=== PATIENT | female | born 1950 | race Caucasian/White ===

== ENCOUNTER → 2017-01-13 | Outpatient (CLI) | payer OTHER ==
--- NOTE | 2017-01-13 11:15 | XR ---
EXAMINATION TYPE: XR KUB DATE OF EXAM: 01/13/2017 CLINICAL HISTORY: Nephrolithiasis. TECHNIQUE: Single supine KUB image of the abdomen is obtained. COMPARISON: None. FINDINGS: Bilateral renal calculi are seen (at least 3 on the right and at least 3 in the left). The largest on the right measures 10 mm and the largest on the left measures 10 mm. Scattered gas is seen in non-distended small bowel loops. Gas and fecal material is seen in non-distended colon. The andrew ng bases are clear and the osseous structures are intact with degenerative changes of the lumbosacral spine. IMPRESSION: 1. Bilateral renal calculi (at least 3 on each side) with the largest on each side both measuring 10 mm. 2. Overall nonobstructive bowel gas pattern.
== END | disposition home or self-care (01) ==
LOC: RADXRMAIN 10:34
PROVIDERS: ATTEND Urology
DX: N20.0 Calculus of kidney (principal)
CPT/HCPCS: 74000

== ENCOUNTER → 2017-01-25 | Outpatient (CLI) | payer OTHER ==
[2017-01-25 09:23] LABS: Anion Gap 11 mmol/L; Blood Urea Nitrogen 14 mg/dL (7-17); Calcium 9.7 mg/dL (8.4-10.2); Carbon Dioxide 26 mmol/L (22-30); Chloride 106 mmol/L (98-107); Glucose 107 mg/dL (74-99); Non-African American GFR(MDRD) >60 (>60 ml/min/1.73 sqM); Potassium 4.7 mmol/L (3.5-5.1); Sodium 143 mmol/L (137-145)
[2017-01-25 09:48] LABS: Basophils # (A) 0.1 k/uL (0-0.2); Basophils % (A) 1 %; CH 28.7; CHCM 33.1; Eosinophils # (A) 0.2 k/uL (0-0.7); Eosinophils % (A) 3 %; HCT 48.1 % (34.0-46.0); HDW 2.54; HGB 15.2 gm/dL (11.4-16.0); Luc # (Auto) 0.14; Luc % (Auto) 2; Lymphocytes # (A) 2.2 k/uL (1.0-4.8); Lymphocytes % (A) 28 %; MCH 27.4 pg (25.0-35.0); MCHC 31.5 g/dL (31.0-37.0); MCV 87.1 fL (80.0-100.0); Mean Platelet Volume 8.1; Monocytes # (A) 0.4 k/uL (0-1.0); Monocytes % (A) 4 %; Neutrophils % (A) 63 %; RBC 5.52 m/uL (3.80-5.40); RDW 14.6 % (11.5-15.5); WBC 7.9 k/uL (3.8-10.6); WBC (Perox) 7.73
== END ==
LOC: LABPAT 08:17
PROVIDERS: ATTEND Physician Assistant
DX: Z01.812 Encounter for preprocedural laboratory examination (principal); N20.0 Calculus of kidney; E03.9 Hypothyroidism, unspecified
CPT/HCPCS: 36415; 80048; 85025

== ENCOUNTER 2017-02-01 08:55 | Day surgery (SDC) | payer OTHER ==
[2017-01-25 15:28] VITALS: BMI 31.4
[~2017-02-01 08:55] MED LIST: DEXAMETHASONE SOD PHOSPHATE 10 MG/ML 1 ML VIAL IV ONE; HYDROmorphone 1 MG/ML 1 ML SYRINGE IVP PRN; LACTATED RINGERS 1,000 ML IV SCH; LIDOCAINE 1% 20 ML VIAL (10MG/ML) FOR IV START INTRADERMA PRN; Pre Op ABX Message 1 EACH MISC MISCELLANE ONE; SCOPOLAMINE 1.5MG/72HR PATCH TRANSDERM ONE
[2017-02-01 10:54] VITALS: RESP 16; TEMP 97.2
[2017-02-01] MEDS ORDERED: LIDOCAINE 1% 20 ML VIAL (10MG/ML) FOR IV START INTRADERMA ONE (11:02)
[2017-02-01] MEDS ORDERED: PROPOFOL 10 MG/ML 20 ML VIAL IV ONE (12:52)
[2017-02-01] MEDS ORDERED: KETAMINE 10 MG/ML 20 ML VIAL ONE (12:52)
[2017-02-01] MEDS ORDERED: fentaNYL (PF) 50 MCG/ML 2 ML AMP ONE (12:52)
[2017-02-01] MEDS ORDERED: MIDAZOLAM 2 MG/2 ML VIAL ONE (12:52)
--- NOTE | 2017-02-01 13:47 | P.OP ---
Date of Procedure: 02/01/17 Preoperative Diagnosis: Right renal calculus Postoperative Diagnosis: Right renal calculus Procedure(s) Performed: Extracorporal shockwave lithotripsy Implants: Indications for Procedure: The patient is a 66 year old female with a history of urolithioasis who was recently noted to have a 7x9 mm calculus in the right kidney. Treatment options were reviewed with Dr Julian and ESWL has been chosen. Description of Procedure: The patient was taken to the operating suite where intravenous sedation was given. Patient was placed in the supine position on the fluoroscopy table. The calculus in the lateral right kidney was localized using biplanar fluoroscopy. Lithotripsy was performed using the Dornier compact delta unit. Patient received 2500 shocks at level 5 at a rate of 60 shocks per minute. There appeared to be some fragmentation of the calculus. Anesthesia was reversed and the patient was returned to the recovery room awake and in satisfactory condition.
--- NOTE | 2017-02-01 13:49 | XR ---
EXAMINATION TYPE: XR KUB DATE OF EXAM: 02/01/2017 COMPARISON: 01/13/2017 INDICATION: Kidney stones right side lithotripsy TECHNIQUE: Single view abdomen frontal FINDINGS: Nonspecific bowel gas is present. Psoas margins are normal. Multiple calcifications are within the bilateral kidneys. These appear stable. The largest calcificat ion is in the mid right kidney measuring 0.9 x 0.7 cm. IMPRESSION: 1. Bilateral renal stones.
[2017-02-01 14:24] VITALS: BP 136/73; PULSE 74
== END 2017-02-01 14:36 | disposition home or self-care (01) ==
LOC: ORWHC2ENDO 08:55
PROVIDERS: ATTEND Urology
DX: N20.0 Calculus of kidney (principal); E03.9 Hypothyroidism, unspecified; I10 Essential (primary) hypertension; F41.9 Anxiety disorder, unspecified; F32.9 Major depressive disorder, single episode, unspecified; Z79.899 Other long term (current) drug therapy; Z88.2 Allergy status to sulfonamides; Z88.8 Allergy status to other drugs, medicaments and biological substances; Z90.710 Acquired absence of both cervix and uterus; Z87.442 Personal history of urinary calculi; Z87.440 Personal history of urinary (tract) infections
CPT/HCPCS: 74000; 50590; J2250; J3010; J2704

== ENCOUNTER → 2017-02-05 | Outpatient (CLI) | payer OTHER ==
--- NOTE | 2017-02-05 09:15 | XR ---
EXAMINATION TYPE: XR KUB DATE OF EXAM: 02/05/2017 9:09 AM CLINICAL HISTORY: Nephrolithiasis TECHNIQUE: Single supine KUB image of the abdomen is obtained. COMPARISON: 02/01/2017 FINDINGS: Scattered gas is seen in non-distended small bowel loops. The previously seen right upper p ole renal calculi are imaged and such that they overlap each other now measuring 1.4 cm. The 3 left r enal calculi in the upper pole measuring 8 mm, in the upper to midpole measuring 11.7 mm, and within the midpole measuring 5.5 mm are unchanged. Single phlebolith is noted within the pelvis. Degenerativ e changes are seen of the lumbosacral spine. Right inguinal clips are noted as on the prior. IMPRESSION: Superimposition of the 2 right-sided renal calculi and stable left renal calculi in comparison to the prior exam.
== END ==
LOC: RADXRMAIN 08:53
PROVIDERS: ATTEND Physician Assistant
DX: N20.0 Calculus of kidney (principal)
CPT/HCPCS: 74000